=== PATIENT | male | born 1950 | race Caucasian/White ===

== ENCOUNTER 2016-07-21 19:32 | Emergency (ER) | payer MEDICAID ==
[2016-07-21 19:39] VITALS: RESP 16; TEMP 97.7
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
[2016-07-21 22:17] VITALS: BP 100/64; PULSE 70; O2SAT 96
[2016-07-21 22:21] LABS: % IMMATURE GRANULYOCYTES 0.3 % (0.0-1.1); ABSOLUTE IMMATURE GRANULOCYTES 0.02 10^3/uL (0.00-0.10); ADD DIFF? NO; ADD MORPH? NO; ADD SCAN? NO; ATYPICAL LYMPHOCYTE FLAG 10 (0-99); FRAGMENT RBC FLAG 0 (0-99); HEMATOCRIT 37.3 % (40.0-51.0); HEMOGLOBIN 13.1 g/dL (13.7-17.5); LEFT SHIFT FLG 0 (0-99); LIPEMIA HEMOLYSIS FLAG 90 (0-99); MEAN CELL HEMOGLOBIN 33.4 pg (27.9-34.1); MEAN CELL HEMOGLOBIN CONCENTR. 35.1 g/dL (32.4-36.7); MEAN CELL VOLUME 95.2 fL (81.5-99.8); MEAN PLATELET VOLUME 8.9 fL (8.7-11.7); PLATELET CLUMPS FLAG 0 (0-99); PLATELET COUNT 204 10^3/uL (150-400); RED BLOOD CELL COUNT 3.92 10^6/uL (4.40-6.38); RED CELL DISTRIBUTION WIDTH 13.3 % (11.5-15.2)
[2016-07-21 22:37] LABS: ALBUMIN 3.7 g/dL (3.5-5.0); ANION GAP 16 mEq/L (8-16); CALCIUM 8.8 mg/dL (8.5-10.4); CARBON DIOXIDE 23 mEq/l (22-31); CHLORIDE 105 mEq/L (97-110); CREATININE 1.1 mg/dL (0.7-1.3); ETHANOL SERUM 256 mg/dL (0-10); GLOMERULAR FILTRATION RATE > 60; GLUCOSE 110 mg/dL (70-100); SODIUM 144 mEq/L (134-144)
--- NOTE | 2016-07-21 22:56 | US ---
Bilateral Lower Extremity Venous Doppler Study Clinical Indications: Bilateral foot swelling. Rule out DVT. Technique: High-frequency transducer was used for compression imaging and Doppler study of the deep veins of both legs from the upper calves to the groins. Pulsed Doppler and color Doppler were utilize d, along with various maneuvers to assess flow in the deep veins. Findings: Comparison to prior study of June 29, 2016. Right Leg: The deep veins of the groin, thigh, knee, and upper calf are well displayed and normally compressible. Doppler flow patterns are unremarkable. There is no evidence of deep venous thrombosi s. Prominent nodes are once again seen in the right groin measuring up to 3.1 cm in length. These hav e a thin cortex. There is also a Oliver's cyst posterior medial aspect of the right popliteal region m easuring 3.7 cm in length. Edema is noted in the subcutaneous tissues right calf. Left Leg: The deep veins of the groin, thigh, knee, and upper calf are well displayed and normally c ompressible. Doppler flow patterns are unremarkable. There is no evidence of deep venous thrombosis . There is normal compression of the greater saphenous veins without superficial thrombosis. Impression: 1. No evidence of DVT both lower extremities. 2. Oliver's cyst posterior medial right popliteal fossa region. 3. Mild prominent lymph nodes stable in the right inguinal region. These findings were discussed by telephone with Dr. Raffy Dietz at 2253 hrs.
== END 2016-07-21 23:31 | disposition home or self-care (01) ==
DX: R60.9 Edema, unspecified (principal); F10.10 Alcohol abuse, uncomplicated; F17.200 Nicotine dependence, unspecified, uncomplicated; I10 Essential (primary) hypertension; Z79.82 Long term (current) use of aspirin
CPT/HCPCS: G0480

== ENCOUNTER 2016-07-28 02:48 | Emergency (ER) | payer MEDICAID ==
[2016-07-28 02:55] VITALS: TEMP 98.8
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
[2016-07-28] MEDS ORDERED: NS 1,000 ML IV ONE (03:05)
[2016-07-28 03:28] LABS: % IMMATURE GRANULYOCYTES 0.2 % (0.0-1.1); ABSOLUTE IMMATURE GRANULOCYTES 0.02 10^3/uL (0.00-0.10); ADD DIFF? NO; ADD MORPH? NO; ADD SCAN? NO; ATYPICAL LYMPHOCYTE FLAG 0 (0-99); FRAGMENT RBC FLAG 0 (0-99); HEMATOCRIT 39.3 % (40.0-51.0); HEMOGLOBIN 13.5 g/dL (13.7-17.5); LEFT SHIFT FLG 10 (0-99); LIPEMIA HEMOLYSIS FLAG 90 (0-99); MEAN CELL HEMOGLOBIN CONCENTR. 34.4 g/dL (32.4-36.7); MEAN CELL VOLUME 96.1 fL (81.5-99.8); MEAN PLATELET VOLUME 9.1 fL (8.7-11.7); PLATELET CLUMPS FLAG 0 (0-99); PLATELET COUNT 193 10^3/uL (150-400); RED BLOOD CELL COUNT 4.09 10^6/uL (4.40-6.38); RED CELL DISTRIBUTION WIDTH 13.8 % (11.5-15.2)
[2016-07-28 03:44] LABS: ANION GAP 8 mEq/L (8-16); CALCIUM 9.1 mg/dL (8.5-10.4); CARBON DIOXIDE 30 mEq/l (22-31); CHLORIDE 103 mEq/L (97-110); CREATININE 0.8 mg/dL (0.7-1.3); ETHANOL SERUM < 10 mg/dL (0-10); GLOMERULAR FILTRATION RATE > 60; GLUCOSE 116 mg/dL (70-100); POTASSIUM 4.3 mEq/L (3.5-5.2); SODIUM 141 mEq/L (134-144)
[2016-07-28 05:57] VITALS: BP 150/73; PULSE 80; RESP 14; O2SAT 92
--- NOTE | 2016-07-28 08:16 | DX ---
PA and Lateral Chest July 28, 2016 Clinical Indications: Pain. Findings: The lungs are clear, and no masses are found. The heart and pulmonary vessels are normal. There are no pleural effusions and no pneumothorax. The bones are unremarkable for this age. Impression: No acute cardiopulmonary process.
== END 2016-07-28 05:56 | disposition home or self-care (01) ==
DX: T69.9XXA Effect of reduced temperature, unspecified, initial encounter (principal); I10 Essential (primary) hypertension; F17.200 Nicotine dependence, unspecified, uncomplicated; Z79.82 Long term (current) use of aspirin; X31.XXXA Exposure to excessive natural cold, initial encounter
CPT/HCPCS: G0480

== ENCOUNTER 2016-08-05 13:36 | Emergency (ER) | payer MEDICAID ==
[2016-08-05 13:49] VITALS: TEMP 97.5
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
[2016-08-05 16:34] VITALS: BP 129/92; PULSE 76; RESP 18; O2SAT 94
== END 2016-08-05 16:39 | disposition home or self-care (01) ==
LOC: EDAGE → EDUNIT#
DX: F10.120 Alcohol abuse with intoxication, uncomplicated (principal); F17.200 Nicotine dependence, unspecified, uncomplicated; Z79.82 Long term (current) use of aspirin

== ENCOUNTER 2016-08-15 16:36 | Emergency (ER) | payer MEDICAID ==
--- NOTE | 2016-08-15 16:31 | EDPHY ---
H & P Time Seen by Provider: 08/15/16 16:36 HPI/ROS: CHIEF COMPLAINT: Head injury HISTORY OF PRESENT ILLNESS: Patient was in a fast food restaurant and EMS was called because he fell down and hit his head hard. EMS was able to contact the patient was sitting next to the soft drink machine, and spoke to the reporting green party who said she saw the patient fall down and hit his head. The patient has no memory of falling or hitting his head. He does admit to heavy alcohol today. He does have a headache but states that he does have chronic headaches. No neck pain or weakness or numbness in extremities. He has does not know if he passed out. REVIEW OF SYSTEMS: Eye: no change in vision ENT: no sore throat Cardiac: no chest pain or syncope Pulmonary: no cough or SOB Abdomen: no vomiting, diarrhea, abdominal pain Musculoskeletal: no back pain or neck pain, no arm or leg pain. Skin: no rash Neuro: Mild headache which the patient says is not unusual for him. Constitutional: no fever : no urinary symptoms A comprehensive 10 point review of systems is otherwise negative aside from elements mentioned in the history of present illness. PAST MEDICAL HISTORY: Alcoholism. History and physical dated 11/09/2015 reviewed personally by myself includes alcoholism, smoker, upper GI bleed, hyponatremia. Social history: Smoker, alcohol. General Appearance: Sleepy but answers questions appropriately. Eyes: No scleral icterus. ENT, Mouth: Normal mucous membranes. No hemotympanum. No tongue laceration or abrasion. Respiratory: Normal respiratory effort, breath sounds equal, lungs are clear to auscultation. Cardiovascular: Regular rate and rhythm. Gastrointestinal: Abdomen is soft and non tender. Neurological: Oriented times self and place but not to date. Normally conversant. Face symmetric, normal movement and sensation in all extremities. Skin: Warm and dry, no rashes. Musculoskeletal: No neck or back midline tenderness. Probable lipoma posterior right shoulder. Normal range of motion of the neck, no meningeal signs. Psychiatric: Not agitated. Emergency Department course/MDM: CT head and cervical spine ordered a patient with head trauma and headache with amnesia to the event and intoxication. EKG, CBC chemistry, alcohol level. 1830: Unable to ambulate, plan for discharge to detox when clinically sober. 906: Ambulatory, no medical complaints, stable for discharge to detox. Constitutional: Initial Vital Signs Temperature (C) 36.5 C 08/15/16 17:20 Heart Rate 74 08/15/16 17:20 Respiratory Rate 16 08/15/16 17:20 Blood Pressure 124/77 H 08/15/16 17:20 O2 Sat (%) 98 08/15/16 17:20 O2 Delivery Mode Room Air Allergies/Adverse Reactions: No Known Allergies Allergy (Verified 08/15/16 17:17) Home Medications: Medication Instructions Recorded Aspirin [Aspirin 81mg (*)] 81 mg PO DAILY #0 tab.chew 11/12/15 Medical Decision Making - Diagnostics EKG Interpretation: 12-lead EKG interpreted by me; official reading is in trace master. My interpretation is sinus at 69 with left anterior fascicular block. Imaging: Negative head and cervical spine CT for acute injury per Dr. Brenton Weiss at 5: 32 p.m. personally reviewed by myself. Differential Diagnosis: Differential diagnosis considered for head injury including but not limited to concussion, skull fracture, intraparenchymal contusion, subarachnoid, subdural and epidural hematoma. - Data Points Laboratory Results: Laboratory Results 08/15/16 16:45 08/15/16 16:45 08/15/16 16:45 WBC 4.53 10^3/uL (3.80-9.50) RBC 4.42 10^6/uL (4.40-6.38) Hgb 14.5 g/dL (13.7-17.5) Hct 42.2 % (40.0-51.0) MCV 95.5 fL (81.5-99.8) MCH 32.8 pg (27.9-34.1) MCHC 34.4 g/dL (32.4-36.7) RDW 13.7 % (11.5-15.2) Plt Count 233 10^3/uL (150-400) MPV 8.8 fL (8.7-11.7) Neut % (Auto) 61.5 % (39.3-74.2) Lymph % (Auto) 30.0 % (15.0-45.0) [place] % (Auto) 6.0 % (4.5-13.0) Eos % (Auto) 0.9 % (0.6-7.6) Baso % (Auto) 0.9 % (0.3-1.7) Nucleat RBC Rel Count 0.0 % (0.0-0.2) Absolute Neuts (auto) 2.79 10^3/uL (1.70-6.50) Absolute Lymphs (auto) 1.36 10^3/uL (1.00-3.00) Absolute Monos (auto) 0.27 L 10^3/uL (0.30-0.80) Absolute Eos (auto) 0.04 10^3/uL (0.03-0.40) Absolute Basos (auto) 0.04 10^3/uL (0.02-0.10) Absolute Nucleated RBC 0.00 10^3/uL (0-0.01) Immature Gran % 0.7 % (0.0-1.1) Immature Gran # 0.03 10^3/uL (0.00-0.10) Sodium 141 mEq/L (134-144) Potassium 4.0 mEq/L (3.5-5.2) Chloride 106 mEq/L (97-110) Carbon Dioxide 23 mEq/l (22-31) Anion Gap 12 mEq/L (8-16) BUN 16 mg/dL (7-23) Creatinine 0.8 mg/dL (0.7-1.3) Estimated GFR > 60 Glucose 99 mg/dL (70-100) Calcium 8.9 mg/dL (8.5-10.4) Ethyl Alcohol 189 H mg/dL (0-10) Departure - Departure Disposition: Home, Routine, Self-Care Clinical Impression: Alcohol intoxication Condition: Good Instructions: Chlordiazepoxide/Clidinium (By mouth), Alcohol Intoxication (ED) Referrals: [facility] [Outside] - As per Instructions
[2016-08-15 17:02] LABS: % IMMATURE GRANULYOCYTES 0.7 % (0.0-1.1); ABSOLUTE IMMATURE GRANULOCYTES 0.03 10^3/uL (0.00-0.10); ADD DIFF? NO; ADD MORPH? NO; ADD SCAN? NO; ATYPICAL LYMPHOCYTE FLAG 20 (0-99); FRAGMENT RBC FLAG 0 (0-99); HEMATOCRIT 42.2 % (40.0-51.0); HEMOGLOBIN 14.5 g/dL (13.7-17.5); LEFT SHIFT FLG 0 (0-99); LIPEMIA HEMOLYSIS FLAG 90 (0-99); MEAN CELL HEMOGLOBIN 32.8 pg (27.9-34.1); MEAN CELL HEMOGLOBIN CONCENTR. 34.4 g/dL (32.4-36.7); MEAN CELL VOLUME 95.5 fL (81.5-99.8); MEAN PLATELET VOLUME 8.8 fL (8.7-11.7); PLATELET CLUMPS FLAG 0 (0-99); PLATELET COUNT 233 10^3/uL (150-400); RED BLOOD CELL COUNT 4.42 10^6/uL (4.40-6.38); RED CELL DISTRIBUTION WIDTH 13.7 % (11.5-15.2)
--- NOTE | 2016-08-15 17:15 | CPEKG ---
Heart Rate: 69 RR Interval: 870 P-R Interval: 172 QRSD Interval: 104 QT Interval: 448 QTC Interval: 480 P Springer: 74 QRS Springer: -60 T Wave Springer: 55 EKG Severity - ABNORMAL ECG - EKG Impression: SINUS RHYTHM EKG Impression: LEFT ANTERIOR FASCICULAR BLOCK EKG Impression: PROBABLE ANTEROSEPTAL INFARCT, OLD EKG Impression: BORDERLINE PROLONGED QT INTERVAL Electronically Signed By: Bi Celis 15-Aug-2016 17:31:02
[2016-08-15 17:23] LABS: ANION GAP 12 mEq/L (8-16); CALCIUM 8.9 mg/dL (8.5-10.4); CARBON DIOXIDE 23 mEq/l (22-31); CHLORIDE 106 mEq/L (97-110); CREATININE 0.8 mg/dL (0.7-1.3); ETHANOL SERUM 189 mg/dL (0-10); GLOMERULAR FILTRATION RATE > 60; GLUCOSE 99 mg/dL (70-100); SODIUM 141 mEq/L (134-144)
[2016-08-15 17:26] VITALS: TEMP 97.7
--- NOTE | 2016-08-15 17:28 | CT ---
CT Brain Without Contrast 1658 hours History: Trauma. Fell earlier today. Alcohol use. Technique: Axial computed tomographic images of the brain without contrast. Images were reconstruct ed down to 1.25 mm slice thickness. Dose reduction techniques were utilized. Comparison the prior study from November 07, 2015. Findings: Hypodensity with some encephalomalacia is once again noted lateral left temporal lobe. Ildefonso tricles, cisterns, and sulci are widened consistent with moderate atrophy. No hydrocephalus, masses, midline shift/herniation, or subdural hematomas. No intraparenchymal hemorrhage or mass effect. No si gnificant hypodensities are seen in the periventricular white matter of bilateral cerebral hemisphere s. There is no acute peripheral cerebral infarct seen. . Bone windows demonstrate no acute fractures. Stable old nasal bone fracture is identified. Paranasal sinuses and mastoid air cells are clear. Earwax in the left external auditory canal has a s table configuration when compared to the prior study. Impression: 1. Stable moderate atrophy. 2. No hemorrhage, mass effect, or definite acute peripheral infarct. 3. Encephalomalacia left lateral temporal lobe stable in appearance possibly from prior trauma. 4. Stable configuration of earwax left external auditory canal. These findings were discussed by telephone with Dr. Bi Celis at 1730 hrs.
--- NOTE | 2016-08-15 17:36 | CT ---
CT Cervical Spine 1658 hours History: Recent trauma. Evaluate for possible cervical spine injury. Technique: Spiral imaging was obtained from the base of skull to the upper chest. Images were reconst ructed at 1.25 mm slice thickness. Images were reconstructed in multiple planes. Dose reduction techn iques were utilized. Findings: Vertebral body heights are well maintained. There are no subluxations. No fractures are see n. Mild degenerative disk disease is noted at C2-C3 and at C3-C4 with marked degenerative disk diseas e with disk space narrowing, endplate sclerosis, and subchondral cystic change at C6-C7. Mild to mode rate left-sided facet hypertrophy is present at C3-C4 and on the left at C4-C5 with moderate bilatera l facet hypertrophy at C5-C6.. Paravertebral soft tissues demonstrate no significant abnormality. Impression: 1. No acute osseous abnormality seen about the cervical spine. 2. Degenerative disk disease at C2-C3, C3-C4, and C6-C7 as detailed above along with facet hypertroph y more prominent on the left side as detailed above. These findings were discussed by telephone with Dr. Bi Celis at 1735 hrs.
[2016-08-15] MEDS ORDERED: CHLORDIAZEPOXIDE 25MG PREPK#6 BTL TAKEHOME ONE (21:02)
[2016-08-15 21:18] VITALS: BP 109/69; PULSE 75; RESP 16; O2SAT 100
== END 2016-08-15 21:17 | disposition home or self-care (01) ==
LOC: EDUNIT#
DX: F10.129 Alcohol abuse with intoxication, unspecified (principal); F17.200 Nicotine dependence, unspecified, uncomplicated; Z79.82 Long term (current) use of aspirin; W22.8XXA Striking against or struck by other objects, initial encounter; Y99.8 Other external cause status; Y93.89 Activity, other specified
CPT/HCPCS: G0480

== ENCOUNTER 2016-09-21 12:54 | Emergency (ER) | payer MEDICAID ==
--- NOTE | 2016-09-21 14:18 | EDPHY ---
H & P Time Seen by Provider: 09/21/16 12:56 HPI/ROS: CHIEF COMPLAINT: Alcohol intoxication HISTORY OF PRESENT ILLNESS: 65-year-old male presents to the emergency department with acute alcohol intoxication. The patient is on an arc hold. The patient admits to drinking alcohol today. He denies any other substance abuse. He does not have any complaints. No reported trauma. REVIEW OF SYSTEMS: Constitutional: No fever, no chills. Eyes: No double or blurry vision. ENT: No sore throat. Respiratory: No cough, no shortness of breath. Cardiac: No chest pain. Gastrointestinal: No abdominal pain, vomiting or diarrhea. Genitourinary: No dysuria. Musculoskeletal: No neck or back pain. Skin: No rashes. Neurological: No headache. Past Medical/Surgical History: Alcoholism, history of pneumonia Social History: Homeless Smoking Status: Current every day smoker Physical Exam: General Appearance: Alert, no distress. Smells strongly of alcohol. Eyes: Pupils equal and round. Extraocular motions are all intact. ENT: Mouth: Mucous membranes moist. Respiratory: No wheezing, rhonchi, or rales, lungs are clear to auscultation. Cardiovascular: Regular rate and rhythm. Gastrointestinal: Abdomen is soft and nontender, no masses, no rebound or guarding, bowel sounds normal. Neurological: Uncooperative, cannot determine. Skin: Warm and dry, no rashes. Musculoskeletal: Nontender to palpate along the cervical, thoracic or lumbar spine. Neck is supple. Extremities: Full range of motion and no peripheral edema. Psychiatric: No agitation Constitutional: Initial Vital Signs Temperature (C) 36.4 C 09/21/16 13:12 Heart Rate 65 09/21/16 13:12 Respiratory Rate 14 09/21/16 13:12 Blood Pressure 178/103 H 09/21/16 13:12 O2 Sat (%) 99 09/21/16 13:12 O2 Delivery Mode Room Air O2 (L/minute) 2 Allergies/Adverse Reactions: No Known Allergies Allergy (Verified 08/15/16 17:17) Home Medications: Medication Instructions Recorded Aspirin [Aspirin 81mg (*)] 81 mg PO DAILY #0 tab.chew 11/12/15 Medical Decision Making ED Course/Re-evaluation: 65-year-old male presents to the emergency department on an arc hold. He was observed for several hours in the emergency department without incident. Upon discharge the patient was without any complaints and was able to ambulate on his own. He was discharged to the addiction recovery Center with the [place] police superintendent. Differential Diagnosis: Altered mental status including but not limited to hypoglycemia, infectious process, electrolyte abnormality, head injury and intoxicants. Departure - Departure Disposition: Home, Routine, Self-Care Clinical Impression: Alcohol intoxication Qualifiers: Complication of substance-induced condition: uncomplicated Qualified Code(s): F10.120 - Alcohol abuse with intoxication, uncomplicated Condition: Good Instructions: Alcohol Intoxication (ED) Additional Instructions: Go to the diction recovery Center. Return if you developed chest pain, difficulty breathing or if you feel worse in any way. You should not drink alcohol in excess. Referrals: [facility] [Outside] - As per Instructions
[2016-09-21 14:45] VITALS: BP 139/86; PULSE 71; RESP 12; TEMP 98.4; O2SAT 100
== END 2016-09-21 15:18 | disposition home or self-care (01) ==
LOC: EDUNIT# → EDBD
DX: F10.120 Alcohol abuse with intoxication, uncomplicated (principal); F17.200 Nicotine dependence, unspecified, uncomplicated; Z79.82 Long term (current) use of aspirin

== ENCOUNTER 2017-05-20 22:43 | Emergency (ER) | payer MEDICAID ==
--- NOTE | 2017-05-20 22:49 | EDPHY ---
H & P HPI/ROS: HPI CHIEF COMPLAINT: Alcohol intoxication, unable to ambulate HISTORY OF PRESENT ILLNESS: Patient very pleasant 66-year-old male, homeless, daily alcohol use, drinking liquor this evening and [place] [employer]. Unable to ambulate. No vomiting. No trauma. Brought to the emergency room by EMS as he is unable to ambulate. No complaints. Intoxicated. Past Medical History: Daily alcohol use. Past Surgical History: No recent surgical history Social History: Homeless, daily alcohol use. Family History: Noncontributory. ROS REVIEW OF SYSTEMS: A comprehensive 10 point review of systems is otherwise negative aside from elements mentioned in the history of present illness. Exam Constitutional intoxicated, smells of alcohol, triage nursing summary reviewed , vital signs reviewed, awake/alert. Eyes normal conjunctivae and sclera, EOMI, PERRLA. HENT normal inspection, atraumatic, moist mucus membranes, no epistaxis, neck supple/ no meningismus, no raccoon eyes. Respiratory clear to auscultation bilaterally, normal breath sounds, no respiratory distress, no wheezing. Cardiovascular rate normal, regular rhythm, no murmur, no edema, distal pulses normal. Gastrointestinal soft, non-tender, no rebound, no guarding, normal bowel sounds, no distension, no pulsatile mass. Genitourinary no CVA tenderness. Musculoskeletal no midline vertebral tenderness, full range of motion, no calf swelling, no tenderness of extremities, no meningismus, good pulses, neurovascularly intact. Skin pink, warm, & dry, no rash, skin atraumatic. Neurologic awake, alert and oriented x 3, AAOx3, moves all 4 extremities equally, motor intact, sensory intact, CN II-XII intact, normal cerebellar, normal vision, normal speech. Psychiatric normal mood/affect. Heme/Lymph/Immune no lymphadenopathy. Differential Diagnosis: Includes but is not limited to in a particular order acute alcohol intoxication, dehydration. Medical Decision Making: Plan for this patient breath alcohol. Monitor for worsening of condition. Monitor for sobriety. Re-evaluation: Breath alcohol 278. Source: Patient, EMS - Personal History Tetanus Vaccine Date: 2013 - Medical/Surgical History Hx Asthma: No Hx Chronic Respiratory Disease: No Hx Diabetes: No Hx Cardiac Disease: No Hx Renal Disease: No Hx Cirrhosis: No Hx Alcoholism: Yes Hx HIV/AIDS: No Hx Splenectomy or Spleen Trauma: No Other PMH: leg injuries, pneumonia, etoh - Social History Smoking Status: Current every day smoker Constitutional: Initial Vital Signs Temperature (C) 36.5 C 05/20/17 22:54 Heart Rate 78 05/20/17 22:54 Respiratory Rate 16 05/20/17 22:54 Blood Pressure 100/59 L 05/20/17 22:54 O2 Sat (%) 92 05/20/17 22:54 O2 Delivery Mode Room Air O2 (L/minute) 2 Allergies/Adverse Reactions: No Known Allergies Allergy (Verified 08/15/16 17:17) Home Medications: Medication Instructions Recorded Aspirin [Aspirin 81mg (*)] 81 mg PO DAILY #0 tab.chew 11/12/15 Departure - Departure Disposition: Home, Routine, Self-Care Clinical Impression: Alcohol intoxication Qualifiers: Complication of substance-induced condition: uncomplicated Qualified Code(s): F10.920 - Alcohol use, unspecified with intoxication, uncomplicated Condition: Good Instructions: Alcohol Intoxication (ED), Abuse of Alcohol (ED) Referrals: Patient,NotPresent [Primary Care Provider] - As per Instructions
[2017-05-20 22:57] VITALS: RESP 16; TEMP 97.7
[2017-05-21 05:53] VITALS: BP 117/73; PULSE 65; O2SAT 92
[2017-05-21] MEDS ORDERED: CHLORDIAZEPOXIDE 25MG PREPK#6 BTL TAKEHOME ONE (05:55)
== END 2017-05-21 06:00 | disposition home or self-care (01) ==
LOC: EDUNIT#
DX: F10.920 Alcohol use, unspecified with intoxication, uncomplicated (principal); F17.200 Nicotine dependence, unspecified, uncomplicated; Z79.82 Long term (current) use of aspirin

== ENCOUNTER 2017-09-13 13:22 | Emergency (ER) | payer MEDICAID ==
--- NOTE | 2017-09-13 13:30 | EDPHY ---
H & P Time Seen by Provider: 09/13/17 13:29 HPI/ROS: CHIEF COMPLAINT: Presumed alcohol intoxication HISTORY OF PRESENT ILLNESS: The patient is brought in by paramedics from a local with presumed alcohol intoxication. He has a history of multiple ED visits. The patient is able to provide only a little history secondary to his assumed intoxication. The patient denies any traumatic complaints. The patient denies taking regular medications. REVIEW OF SYSTEMS: A comprehensive 10 point review of systems is otherwise negative aside from elements mentioned in the history of present illness. Source: Patient Exam Limitations: No limitations - Personal History Tetanus Vaccine Date: 2013 - Medical/Surgical History Hx Asthma: No Hx Chronic Respiratory Disease: No Hx Diabetes: No Hx Cardiac Disease: No Hx Renal Disease: No Hx Cirrhosis: No Hx Alcoholism: Yes Hx HIV/AIDS: No Hx Splenectomy or Spleen Trauma: No Other PMH: leg injuries, pneumonia, etoh - Social History Smoking Status: Current every day smoker - Physical Exam Exam: General Appearance: Thin male, somewhat deconditioned, disheveled Head: Normocephalic atraumatic Eyes: Pupils equal and round no pallor or injection ENT, Mouth: Dry mucous membranes Respiratory: There are no retractions, lungs are clear to auscultation Cardiovascular: Regular rate and rhythm Gastrointestinal: Abdomen is soft and nontender, no masses, bowel sounds normal Neurological: Moves all 4 extremities Skin: Warm and dry, no rashes Musculoskeletal: Neck is supple nontender Extremities: symmetrical, full range of motion Constitutional: Initial Vital Signs Temperature (C) 36.5 C 09/13/17 13:30 Heart Rate 72 09/13/17 13:30 Respiratory Rate 18 09/13/17 13:30 Blood Pressure 167/104 H 09/13/17 13:30 O2 Sat (%) 93 09/13/17 13:30 O2 Delivery Mode Room Air Allergies/Adverse Reactions: No Known Allergies Allergy (Verified 08/15/16 17:17) Home Medications: Medication Instructions Recorded Aspirin [Aspirin 81mg (*)] 81 mg PO DAILY #0 tab.chew 11/12/15 Medical Decision Making ED Course/Re-evaluation: The patient presents to the ED with a likely alcohol intoxication. The patient's blood alcohol level was 0.288. The patient did appear somewhat dehydrated. He received a L of normal saline. The patient did have screening laboratory studies and had no evidence of an obvious anion gap. The patient underwent serial examinations in the ED. At 3:00 p.m. his mentation is markedly improved. He has no acute complaints. He will be discharged home in stable condition. 5:00 p.m.: The patient is improving in terms of his mentation. He is still having some difficulties with ambulation secondary to his alcohol intoxication. 6:30 p.m.: The patient is now ambulatory without acute complaints. He is interested in going to the [facility] for further sobering. He clearly is at risk for developing alcohol withdrawal and will be discharged to the [facility] with a Librium prescription. Differential Diagnosis: Differential diagnosis considered includes alcohol intoxication, dehydration, metabolic abnormality, acidosis - Data Points Laboratory Results: Laboratory Results 09/13/17 13:30 09/13/17 13:30 09/13/17 09/13/17 13: 13:30 WBC 3.85 10^3/uL 10^3/uL (3.80-9.50) RBC 4.42 10^6/uL 10^6/uL (4.40-6.38) Hgb 15.5 g/dL g/dL (13.7-17.5) Hct 44.8 % % (40.0-51.0) MCV 101.4 fL H fL (81.5-99.8) MCH 35.1 pg H pg (27.9-34.1) MCHC 34.6 g/dL g/dL (32.4-36.7) RDW 12.8 % % (11.5-15.2) Plt Count 131 10^3/uL L 10^3/uL (150-400) MPV 9.2 fL fL (8.7-11.7) Neut % (Auto) Not Reported Lymph % (Auto) Not Reported [place] % (Auto) Not Reported Eos % (Auto) Not Reported Baso % (Auto) Not Reported Nucleat RBC Rel Count 0.0 % % (0.0-0.2) Absolute Neuts (auto) Not Reported Absolute Lymphs (auto) Not Reported Absolute Monos (auto) Not Reported Absolute Eos (auto) Not Reported Absolute Basos (auto) Not Reported Absolute Nucleated RBC 0.00 10^3/uL 10^3/uL (0-0.01) Immature Gran % Not Reported Seg Neutrophils % 40 % % Band Neutrophils % 2 % % Lymphocytes % 32 % % Monocytes % 26 % % Immature Gran # Not Reported Absolute Seg Neuts 1.54 10^/uL L 10^/uL (1.70-6.50) Absolute Band Neuts 0.08 10^3/uL 10^3/uL (0.00-0.70) Absolute Lymphocytes 1.23 10^3/uL 10^3/uL (1.00-3.00) Absolute Monocytes 1.00 10^3/uL H 10^3/uL (0.30-0.80) Platelet Estimate DECREASED L (ADEQ) Polychromasia 1+ H Oval Macrocytes 1+ H Smear Review By Jackeline ORTEGA MD Sodium 143 mEq/L mEq/L (135-145) Potassium 4.3 mEq/L mEq/L (3.5-5.2) Chloride 101 mEq/L mEq/L (97-110) Carbon Dioxide 26 mEq/l mEq/l (22-31) Anion Gap 16 mEq/L mEq/L (8-16) BUN 11 mg/dL mg/dL (7-23) Creatinine 0.8 mg/dL mg/dL (0.7-1.3) Estimated GFR > 60 Glucose 102 mg/dL H mg/dL (70-100) Calcium 9.6 mg/dL mg/dL (8.5-10.4) Ethyl Alcohol 288 mg/dL H mg/dL (0-10) Medications Given: Discontinued Medications Sodium Chloride (Ns) 1,000 mls @ 0 mls/hr IV EDNOW ONE; Wide Open PRN Reason: Protocol Stop: 09/13/17 13:34 Last Admin: 09/13/17 14:01 Dose: Not Given Departure - Departure Disposition: Home, Routine, Self-Care Clinical Impression: Alcohol intoxication Condition: Good Instructions: Alcohol Intoxication (ED) Additional Instructions: 1. Continue use of alcohol which she was serious risk for infection, trauma and even . 2. Please follow up with the [facility] if you desire assistance with your alcohol dependence. Referrals: [facility] [Outside] - As per Instructions
[2017-09-13 13:32] VITALS: RESP 18; TEMP 97.7; O2SAT 93
[2017-09-13] MEDS ORDERED: NS 1,000 ML IV ONE (13:33)
[2017-09-13 13:39] LABS: PLATELET COUNT 131 10^3/uL (150-400)
[2017-09-13 17:49] VITALS: BP 155/81; PULSE 76
[2017-09-13] MEDS ORDERED: CHLORDIAZEPOXIDE 25MG PREPK#6 BTL TAKEHOME ONE (18:27)
== END 2017-09-13 18:40 | disposition home or self-care (01) ==
LOC: EDBD → EDUNIT#
DX: F10.129 Alcohol abuse with intoxication, unspecified (principal); F17.200 Nicotine dependence, unspecified, uncomplicated; Z79.82 Long term (current) use of aspirin
CPT/HCPCS: G0480

== ENCOUNTER 2017-09-14 14:47 | Inpatient (IN) | payer MEDICAID ==
[2017-09-14] MEDS ORDERED: NS 1,000 ML IV ONE (14:50)
--- NOTE | 2017-09-14 14:50 | EDPHY ---
H & P Time Seen by Provider: 09/14/17 14:49 HPI/ROS: Chief complaint. Stroke alert HPI. 66-year-old male presents emergency department as a stroke activation from [facility]. Patient seen in our emergency department yesterday for alcohol intoxication. He had improving mentation and was sent to the arc. Apparently overnight there were no reports of any problems with the patient. Today around noon staff noticed that the patient was not speaking. There was concern for stroke and he was sent to the emergency department emergently as a stroke activation. Patient does not speak other than to occasionally say yes in appropriately. Time of onset of speech difficulty is not known. Patient is found to have a fever in the emergency department ROS Constitutional. Fever Eyes. no problems with vision ENT. no sore throat, no nasal drainage Cardiovascular. no chest pain Respiratory. no shortness of breath, no cough Abdominal. no abdominal pain, no nausea/vomiting, no diarrhea . no problems urinating MS. no calf pain/swelling, no neck/back pain, no joint pain Skin. no rash Lymph. no swollen glands Neuro. Patient only answers yes Past Medical/Surgical History: Past medical history significant for GI bleed, hyponatremia, anemia, chronic renal insufficiency, alcoholism, pneumonia Social History: Single, daily smoker, no alcohol for the past 24 hr though blood alcohol yesterday afternoon was 288 Smoking Status: Current every day smoker Physical Exam: General Appearance: Alert well-developed male mild distress. Vital signs show blood pressure 174/105, heart rate 106 and temp 38.4 degrees Eyes: Pupils equal and round no pallor or injection. ENT, Mouth: Mucous membranes are moist. Respiratory: No retractions but mild inspiratory expiratory rhonchi Cardiovascular: Regular rate and rhythm with tachycardia Gastrointestinal: Abdomen is soft and nontender, no masses, bowel sounds normal. Neurological: Awake and alert, sensory and motor exams grossly normal. Skin: Warm and dry, no rashes. Musculoskeletal: Neck is supple nontender. Extremities symmetrical, full range of motion. Psychiatric: Patient does not respond and I cannot assess orientation Constitutional: Initial Vital Signs Temperature (C) 38.8 C H 09/14/17 15:57 Heart Rate 106 H 09/14/17 15:57 Respiratory Rate 20 09/14/17 15:57 Blood Pressure 174/105 H 09/14/17 15:57 O2 Sat (%) 94 09/14/17 15:57 O2 Delivery Mode Nasal Cannula O2 (L/minute) 2 Allergies/Adverse Reactions: No Known Allergies Allergy (Verified 08/15/16 17:17) Home Medications: Medication Instructions Recorded Aspirin [Aspirin 81mg (*)] 81 mg PO DAILY #0 tab.chew 11/12/15 Medical Decision Making - Diagnostics Imaging Results: Imaging Impressions Chest X-Ray 09/14/17 14:50 Impression: Infiltrate in the left lower lung compatible with pneumonia. Head CT 09/14/17 14:50 Impression: 1. No acute intracranial hemorrhage or evidence of acute ischemia. 2. Atrophy and left temporal encephalomalacia, unchanged since July 2016. Head CTA 09/14/17 14:57 Impression: 1. Normal intracranial arterial circulation. No evidence of embolic disease or aneurysm. 2. Patent venous system. Findings discussed with Emergency Department physician, Willie Lobo M.D., on September 14, 2017 at 1511. Neck CTA 09/14/17 14:57 Impression: 1. No flow-limiting stenosis, ulcerated plaque, or dissection. 2. Mild (less than 30%) stenosis bilateral carotid bulbs and origin of the internal carotid arteries due to eccentric calcified plaque. 3. Early lingular pneumonia versus aspiration. Findings discussed with Emergency Department Physician Skiing Teacher, Tommy Rowland, Cammie MARTIN at September 14, 2017 at 1549. Measurement of carotid stenosis is based on the residual internal carotid diameter with [place] Symptomatic Carotid Endarterectomy Trial (NASCET) based stenosis levels. Noncontrast head CT shows atrophy but no evidence of hemorrhage CTA head and neck shows some narrowing but no flow limiting lesions. No thromboembolic evidence Chest x-ray shows left lower lobe pneumonia Procedures: IV normal saline. Sepsis workup The patient was left on the gurney and I took a history and performed neurologic exam. The patient was uncooperative for the exam but appears to be grossly normal. I do not see any facial droop or arm or leg weakness. However the patient is unable to cooperate participate in the exam. During the exam he answers yes I consulted and discussed the case with Dr. Culver at [facility]. He recommends following the noncontrast head CT with angio of his head and neck. He also recommends high-dose thiamin treatment for the patient IV Rocephin, intravenous thiamin ED Course/Re-evaluation: Thigh min 500 mg IV. Patient remains stable. However he remains nonverbal. He does appear to be more alert He and I discussed the treatment plan and recommendation for admission. He does not expressed understanding or agreement as he is nonverbal. I consulted and discussed the case with , hospitalist, who agrees to the admission Differential Diagnosis: Patient came in as a stroke activation. At this point no evidence for CVA. I have considered were neck ease encephalopathy and have given the patient IV thiamin. He is found to have a new pneumonia on his chest x-ray. We did sepsis workup and I considered severe sepsis. Patient is cultured and treated with IV antibiotics. He does have an element also of alcohol withdrawal. He is treated with Ativan for this. Critical Care Time: Critical care time exclusive procedures 50 min - Data Points Laboratory Results: Laboratory Results 09/14/17 14:55 09/14/17 14:55 09/14/17 09/14/17 09/14/17 16:10 16:10 16:10 WBC RBC Hgb Hct MCV MCH MCHC RDW Plt Count MPV Neut % (Auto) Lymph % (Auto) [place] % (Auto) Eos % (Auto) Baso % (Auto) Nucleat RBC Rel Count Absolute Neuts (auto) Absolute Lymphs (auto) Absolute Monos (auto) Absolute Eos (auto) Absolute Basos (auto) Absolute Nucleated RBC Immature Gran % Immature Gran # PT INR VBG Lactic Acid 1.6 mmol/L mmol/L (0.7-2.1) Sodium Potassium Chloride Carbon Dioxide Anion Gap BUN Creatinine Estimated GFR Glucose Calcium Total Bilirubin 0.9 mg/dL mg/dL (0.1-1.4) Conjugated Bilirubin 0.5 mg/dL mg/dL (0.0-0.5) Unconjugated Bilirubin 0.4 mg/dL mg/dL (0.0-1.1) AST 88 IU/L H IU/L (17-59) ALT 40 IU/L IU/L (21-72) Alkaline Phosphatase 70 IU/L IU/L (38-126) Ammonia < 9.0 uMOL/L L uMOL/L (9.0-30.0) Troponin I Total Protein 6.5 g/dL g/dL (6.3-8.2) Albumin 3.4 g/dL L g/dL (3.5-5.0) Urine Color Urine Appearance Urine pH Ur Specific [place] Urine Protein Urine Ketones Urine Blood Urine Nitrate Urine Bilirubin Urine Urobilinogen Ur Leukocyte Esterase Urine RBC Urine WBC Ur Epithelial Cells Urine Mucus Urine Glucose Nasal Influenza A PCR Nasal Influenza B PCR Urine Opiates Screen Urine Barbiturates Ur Phencyclidine Scrn Ur Amphetamine Screen U Benzodiazepines Scrn Urine Cocaine Screen U Marijuana (THC) Screen Ethyl Alcohol < 10 mg/dL mg/dL (0-10) RSV (PCR) 09/14/17 09/14/17 09/14/17 16:00 16:00 16:00 WBC RBC Hgb Hct MCV MCH MCHC RDW Plt Count MPV Neut % (Auto) Lymph % (Auto) [place] % (Auto) Eos % (Auto) Baso % (Auto) Nucleat RBC Rel Count Absolute Neuts (auto) Absolute Lymphs (auto) Absolute Monos (auto) Absolute Eos (auto) Absolute Basos (auto) Absolute Nucleated RBC Immature Gran % Immature Gran # PT INR VBG Lactic Acid Sodium Potassium Chloride Carbon Dioxide Anion Gap BUN Creatinine Estimated GFR Glucose Calcium Total Bilirubin Conjugated Bilirubin Unconjugated Bilirubin AST ALT Alkaline Phosphatase Ammonia Troponin I Total Protein Albumin Urine Color PALE YELLOW Urine Appearance CLEAR Urine pH 8.0 H (5.0-7.5) Ur Specific [place] 1.035 H (1.002-1.030) Urine Protein NEGATIVE (NEGATIVE) Urine Ketones NEGATIVE (NEGATIVE) Urine Blood 1+ H (NEGATIVE) Urine Nitrate NEGATIVE (NEGATIVE) Urine Bilirubin NEGATIVE (NEGATIVE) Urine Urobilinogen NEGATIVE EU EU (0.2-1.0) Ur Leukocyte Esterase NEGATIVE (NEGATIVE) Urine RBC 3-5 /hpf H /hpf (0-3) Urine WBC 1-3 /hpf /hpf (0-3) Ur Epithelial Cells TRACE /lpf /lpf (NONE-1+) Urine Mucus TRACE /lpf /lpf (NONE-1+) Urine Glucose NEGATIVE (NEGATIVE) Nasal Influenza A PCR NEGATIVE FOR FLU A Cancelled (NEGATIVE) Nasal Influenza B PCR NEGATIVE FOR FLU B Cancelled (NEGATIVE) Urine Opiates Screen NEGATIVE (NEGATIVE) Urine Barbiturates NEGATIVE (NEGATIVE) Ur Phencyclidine Scrn NEGATIVE (NEGATIVE) Ur Amphetamine Screen NEGATIVE (NEGATIVE) U Benzodiazepines Scrn NON-NEGATIVE H (NEGATIVE) Urine Cocaine Screen NEGATIVE (NEGATIVE) U Marijuana (THC) Screen NON-NEGATIVE H (NEGATIVE) Ethyl Alcohol RSV (PCR) RSV DETECTED H (NEGATIVE) 09/14/17 09/14/17 09/14/17 14:55 14:55 14:55 WBC 7.26 10^3/uL 10^3/uL (3.80-9.50) RBC 4.12 10^6/uL L 10^6/uL (4.40-6.38) Hgb 14.3 g/dL g/dL (13.7-17.5) Hct 41.0 % % (40.0-51.0) MCV 99.5 fL fL (81.5-99.8) MCH 34.7 pg H pg (27.9-34.1) MCHC 34.9 g/dL g/dL (32.4-36.7) RDW 12.8 % % (11.5-15.2) Plt Count 109 10^3/uL L 10^3/uL (150-400) MPV 8.8 fL fL (8.7-11.7) Neut % (Auto) 75.5 % H % (39.3-74.2) Lymph % (Auto) 6.9 % L % (15.0-45.0) [place] % (Auto) 17.2 % H % (4.5-13.0) Eos % (Auto) 0.0 % L % (0.6-7.6) Baso % (Auto) 0.1 % L % (0.3-1.7) Nucleat RBC Rel Count 0.0 % % (0.0-0.2) Absolute Neuts (auto) 5.48 10^3/uL 10^3/uL (1.70-6.50) Absolute Lymphs (auto) 0.50 10^3/uL L 10^3/uL (1.00-3.00) Absolute Monos (auto) 1.25 10^3/uL H 10^3/uL (0.30-0.80) Absolute Eos (auto) 0.00 10^3/uL L 10^3/uL (0.03-0.40) Absolute Basos (auto) 0.01 10^3/uL L 10^3/uL (0.02-0.10) Absolute Nucleated RBC 0.00 10^3/uL 10^3/uL (0-0.01) Immature Gran % 0.3 % % (0.0-1.1) Immature Gran # 0.02 10^3/uL 10^3/uL (0.00-0.10) PT 14.1 SEC SEC (12.0-15.0) INR 1.07 (0.83-1.16) VBG Lactic Acid Sodium 137 mEq/L mEq/L (135-145) Potassium 3.1 mEq/L L mEq/L (3.5-5.2) Chloride 101 mEq/L mEq/L (97-110) Carbon Dioxide 23 mEq/l mEq/l (22-31) Anion Gap 13 mEq/L mEq/L (8-16) BUN 13 mg/dL mg/dL (7-23) Creatinine 0.8 mg/dL mg/dL (0.7-1.3) Estimated GFR > 60 Glucose 133 mg/dL H mg/dL (70-100) Calcium 9.0 mg/dL mg/dL (8.5-10.4) Total Bilirubin Conjugated Bilirubin Unconjugated Bilirubin AST ALT Alkaline Phosphatase Ammonia Troponin I 0.061 ng/mL H ng/mL (0.000-0.034) Total Protein Albumin Urine Color Urine Appearance Urine pH Ur Specific [place] Urine Protein Urine Ketones Urine Blood Urine Nitrate Urine Bilirubin Urine Urobilinogen Ur Leukocyte Esterase Urine RBC Urine WBC Ur Epithelial Cells Urine Mucus Urine Glucose Nasal Influenza A PCR Nasal Influenza B PCR Urine Opiates Screen Urine Barbiturates Ur Phencyclidine Scrn Ur Amphetamine Screen U Benzodiazepines Scrn Urine Cocaine Screen U Marijuana (THC) Screen Ethyl Alcohol RSV (PCR) Medications Given: Thiamine HCl 500 mg/ Sodium (Chloride) 505 mls @ 505 mls/hr IV Q8HRS [facility] Stop: 03/13/18 21:59 Last Admin: 09/14/17 15:55 Dose: 505 mls Discontinued Medications Sodium Chloride (Ns) 1,000 mls @ 0 mls/hr IV ONCE ONE; Wide Open PRN Reason: Protocol Stop: 09/14/17 14:51 Last Admin: 09/14/17 15:57 Dose: 1,000 mls Ceftriaxone Sodium/Dextrose (Rocephin 1 Gm (Premix)) 50 mls @ 100 mls/hr IV EDNOW ONE PRN Reason: Protocol Stop: 09/14/17 18:02 Last Admin: 02/26/18 17:38 Dose: 50 mls Lorazepam (Ativan Injection) 1 mg IVP EDNOW ONE Stop: 09/14/17 15:57 Last Admin: 09/14/17 15:57 Dose: 1 mg Thiamine HCl (Vitamin B-1) 100 mg IM EDNOW ONE Stop: 09/14/17 14:58 Last Admin: 09/14/17 15:55 Dose: 100 mg Departure - Departure Disposition: [facility] Inpatient Acute Clinical Impression: Alcohol withdrawal Qualifiers: Complication of substance-induced condition: with unspecified complication Qualified Code(s): F10.239 - Alcohol dependence with withdrawal, unspecified Pneumonia Qualifiers: Pneumonia type: due to unspecified organism Laterality: left Lung location: lower lobe of lung Qualified Code(s): J18.1 - Lobar pneumonia, unspecified organism Altered mental status Qualifiers: Altered mental status type: disorientation Qualified Code(s): R41.0 - Disorientation, unspecified Condition: Fair
[2017-09-14] MEDS ORDERED: IOPAMIDOL (ISOVUE 370) 100 ML BTL IV ONE ×2 (14:54→15:13)
[2017-09-14] MEDS ORDERED: THIAMINE HCL 200 MG/2 ML VIAL IM ONE (14:57)
[2017-09-14 15:08] LABS: PLATELET COUNT 109 10^3/uL (150-400)
[2017-09-14 15:19] LABS: INR 1.07 (0.83-1.16); PROTIME(PATIENT) 14.1 SEC (12.0-15.0)
--- NOTE | 2017-09-14 15:37 | CPEKG ---
Heart Rate: 114 RR Interval: 526 P-R Interval: 148 QRSD Interval: 108 QT Interval: 344 QTC Interval: 474 P [place]: 81 QRS [place]: -53 T Wave [place]: 92 EKG Severity - ABNORMAL ECG - EKG Impression: SINUS TACHYCARDIA EKG Impression: ABERRANT COMPLEX, POSSIBLY SUPRAVENTRICULAR EKG Impression: PROBABLE LEFT ATRIAL ABNORMALITY EKG Impression: LEFT ANTERIOR FASCICULAR BLOCK EKG Impression: REPOL ABNRM SUGGESTS ISCHEMIA, ANT-LAT LEADS Electronically Signed By: Willie Lobo 14-Sep-2017 22:34:35
[2017-09-14] MEDS ORDERED: LORazepam 2 MG/ML INJ ONE (15:43)
[2017-09-14] MEDS ORDERED: LORazepam 2 MG/ML INJ IVP ONE (15:56)
[2017-09-14] MEDS ORDERED: LORazepam 1 MG TAB PO PRN (18:31)
[2017-09-14] MEDS ORDERED: PROMETHAZINE HCL 25 MG/ML INJ IVP PRN (18:36)
[2017-09-14] MEDS ORDERED: ACETAMINOPHEN 325 MG TAB PO PRN (18:36)
[2017-09-14] MEDS ORDERED: ONDANSETRON 4 MG/2 ML VIAL IVP PRN (18:36)
[2017-09-14] MEDS ORDERED: ACETAMINOPHEN 650 MG SUPP PR PRN (18:36)
[2017-09-14] MEDS ORDERED: NS 1,000 ML IV SCH (18:45)
--- NOTE | 2017-09-14 20:31 | GHP ---
[f rep st] HISTORY AND PHYSICAL DATE OF ADMISSION: 09/14/2017 CHIEF COMPLAINT: Altered mental status. HISTORY OF PRESENT ILLNESS: The patient is a 66-year-old male, who was seen in the emergency departm ent yesterday with alcohol intoxication and sent to the [facility]. He did fine overnight, but at about noo n today he was found by the staff to be minimally responsive and not speaking. [facility]. He went emergently to head CT and CT angiogram of the chest, and [facility] was consulted. The exam was nonfocal, and there was no definite time of onset, a nd so t-PA was not indicated. After he returned from his stroke alert from CT scan he was noted to h ave a fever and has since been diagnosed with pneumonia. He does complain of a cough. He is letharg ic, but wakes up to answer very simple questions, but only very briefly and is very difficult to arou se at this time. PAST MEDICAL HISTORY: 1. Alcoholism. 2. Suspected Wernicke's. 3. Hypertension. 4. Erosive esophagitis. MEDICATIONS: Please see computer record for full detailed list. ALLERGIES: No known drug allergies. SOCIAL HISTORY: He smokes up to 2 packs per day. He drinks alcohol. Alcohol level yesterday in the emergency department was 228. I believe he is homeless. REVIEW OF SYSTEMS: Complete review of systems was obtained. Review of systems is negative for const itutional, HEENT, GI, pulmonary, cardiovascular, , Hematology, skin musculoskeletal, endocrine, and psychiatric, except for positives as in HPI. FAMILY HISTORY: Reviewed and noncontributory to presenting complaint. PHYSICAL EXAMINATION: GENERAL: Well-developed, well-nourished male, in no distress. VITAL SIGNS: Temperature 38.8, pulse 96, blood pressure 107/87, saturating 95% on 2 L. EYES: Normal conjunctivae . Pupils are reactive to light. ENT: Normal ears and nose. Hearing is intact. MOUTH: Normal celia th. OROPHARYNX: Dry. NECK: Trachea midline. No thyromegaly. CHEST: Normal effort. LUNGS: Jan ar to auscultation bilaterally. CARDIOVASCULAR: Regular rhythm. No murmur. No extremity edema. A BDOMEN: Soft, nontender. No hepatosplenomegaly. SKIN: Warm, dry, intact. No rash. MUSCULOSKELET AL: No cyanosis or clubbing. Strength is difficult to ascertain because he is lethargic and not fol lowing commands. No obvious defects noted. NEUROLOGIC: Cranial nerves: Unable to assess. Unable to assess sensation. PSYCHIATRIC: He is lethargic, but arousable. Not able to give any history. LABORATORY DATA: White count 7.26, hematocrit 41.0, platelets 109. Sodium 137, potassium 3.1, chlor jane 101, bicarbonate 23, BUN 13, creatinine 0.8, glucose 133. Ammonia is less than 9. AST 88. LFTs otherwise normal. Troponin 0.061. Lactate is 1.6. Toxicology screen is positive for benzodiazepine s and THC. Alcohol level is less than 10. Urinalysis is negative. Influenza is negative. RSV posi tive. Head CT is negative. CT angiogram of head and neck negative. EKG is viewed by me and my personal interpretation is normal sinus rhythm. No ST-T wave changes. Chest x-ray shows a left lower lobe infiltrate. ASSESSMENT/PLAN: 1. Pneumonia. He is also positive for respiratory syncytial virus. I suspect he may have secondary bacterial pneumonia on top of his respiratory syncytial virus. We will treat supportively, as well a s ceftriaxone and azithromycin for the bacterial infection. 2. Somnolence. Initially he came in as a stroke alert. No t-PA given, as he is nonfocal, and no de finite time of onset. My suspicion is that he has not had a stroke, and this is the metabolic enceph alopathy due to his pneumonia. Head CT and CT angiogram of the head and neck are negative. I will k eep him n.p.o. until his mental status improves. 3. Alcoholism. We will place him on a CIWA protocol. 4. Possible Wernicke's. [place] recommended high-dose thiamine. He has also on previous admission s thought to have an element of Wernicke's chronically. Intravenous thiamine is prescribed. 5. Tobacco dependence. We will offer a nicotine patch. 6. Troponin elevation. I believe this is strain in the setting of pneumonia. We will follow. 7. Code status is full. ADMISSION STATUS: We will admit to inpatient, as he is medically complex. Anticipate greater than 2 midnights. DVT PROPHYLAXIS: He is high risk. We will place him on subcutaneous Lovenox. /[id number]/MODL
[2017-09-14] MEDS ORDERED: PROTOCOL POTASSIUM 1 DOSE MISC PRN (20:46)
[2017-09-14] MEDS: AZITHROMYCIN IV 500 MG in NS 250 ML IV SCH (21:31)
[2017-09-14] MEDS: NICOTINE 21 MG/24 HR PATCH TD SCH (21:33)
[2017-09-14] MEDS ORDERED: THIAMINE HCL 500 MG in NS 500 ML IV SCH (22:00)
[2017-09-14] MEDS ORDERED: PROTOCOL MAGNESIUM 1 DOSE IV PRN (22:38)
[2017-09-14] MEDS ORDERED: MAGNESIUM SULF 1 GM/DEXTROSE 100 ML IV ONE (22:39)
[2017-09-14] MEDS: POTASSIUM Cl (KCl) 10 MEQ in NS 100 ML IV SCH (22:55)
[2017-09-15] MEDS: POTASSIUM Cl (KCl) 10 MEQ in NS 100 ML IV SCH ×6 (00:06→16:19)
[2017-09-15 06:18] LABS: PLATELET COUNT 93 10^3/uL (150-400)
[2017-09-15 06:22] LABS: INR 1.2 (0.83-1.16); PROTIME(PATIENT) 15.4 SEC (12.0-15.0)
--- NOTE | 2017-09-15 07:26 | PDCONSULT ---
Nurse Private Duty Note: [facility] Note Demographics Consult Type: Phone Only First Name: Jay BucknerClekelvin) Last Name: Patsy Date of : 1950 Age: 66 Referring Provider: Dr Lobo Time of initial page (Bisbee ): 09/14/2017 14:49 Time of return call (Bisbee Time): 09/14/2017 14:50 Time Ready to Initiate Telemed Consult (Bisbee Time): 09/14/2017 14:50 HPI Additional History (Free Text): 66 year old man with alcoholism sent to alcohol rehab yesterday from the emergency department. Sometime between 5 p.m. yesterday and this afternoon he is having trouble with words and talking. He hadn't been verbally interacting much with others and head and brought attention to himself so timing is uncertain. He does not have any demonstrable weakness by Dr Lobo's exam. Plan Imaging: CTA Head and Neck STAT, Please call me back with results [place] if there are signs of occlusion or dissection Additional Recommendations: IV thiamine 500 mg x 1 Logistics Provider Location: [place] Patient Location: [facility]
[2017-09-15] MEDS ORDERED: THIAMINE HCL 500 MG in NS 500 ML IV SCH (09:00)
[2017-09-15] MEDS: AZITHROMYCIN IV 500 MG in NS 250 ML IV SCH (09:01)
[2017-09-15] MEDS: NICOTINE 21 MG/24 HR PATCH TD SCH ×2 (09:01→09:04)
[2017-09-15] MEDS: ENOXAPARIN 40 MG/0.4 ML SYR SC SCH (09:01)
[2017-09-15] MEDS ORDERED: POTASSIUM Cl (KCl) 100 ML IV SCH (09:45)
--- NOTE | 2017-09-15 12:05 | PDMN ---
Medical Necessity Medical necessity: est los>2mn for PNA, RSV, somnolence, elevated troponin; admit to ICU/SDU, for IV abx, supportive care, CIWA; comorbid etoh abuse, possible Wernicke's, htn, erosive esophagitis, homelessness; per order and H&P
--- NOTE | 2017-09-15 14:36 | ASMTLACE ---
KIRSTIN Acuity / Level of Answers: Yes Care: Did the patient have an inpatient admission? Comorbidities - select Answers: Chronic pulmonary disease all that apply # of Emergency department Answers: 3-4 visits in the last 6 months Social determinants Answers: History of substance abuse (ETOH, street drugs, prescription drugs, etc.) Homelessness (street, custodial) Lack of community resources and/or lack of social support (no pcp, lives alone, transportation, ag d) Score: 18 Date Signed: 09/15/2017 02:36 PM Electronically Signed By:Suri Chatterjee LCSW
--- NOTE | 2017-09-15 14:41 | ASMTCMCOM ---
CM Note CM Note Notes: 66yr old male admitted fo PNA, RSV, ETOH abuse, Possible Wernicke's. He has a Hx of Homelessness, Cellulitis of R toe. Has not yet been evaluated by PT. Patient may need [facility] bed on discharge. to transfer to the floor. CM to follow. Date Signed: 09/15/2017 02:41 PM Electronically Signed By:Suri Chatterjee LCSW
--- NOTE | 2017-09-15 16:34 | HOSPPROG ---
Hospitalist Progress Note Assessment/Plan: # CAP - RSV positive on swab - CXR (personally reviewed and interpreted) left lower lobe infiltrate oxygen saturations 92% on RA - WBC 8.6 - consider procalcitonin to guide abx decision - follow cultures - cont antibiotics # acute encephalopathy - resolved overnight - stroke work up negative # Etoh abuse - risk of wd - cont CIWA #dispo - if remains stable can likely dc to alf tomorrow I have discussed the case with RN continue CIWA monitoring and supportive care Subjective: wiped out Objective: Vital Signs Temp Pulse Resp BP Pulse Ox 36.8 C 73 16 147/83 H 92 09/15/17 16:00 09/15/17 16:00 09/15/17 16:00 09/15/17 16:00 09/15/17 16:00 Laboratory Results 09/15/17 05:42 09/15/17 05:42 09/14/17 09/15/17 09/16/17 05:59 05:59 05:59 Intake Total 2922 1619 Output Total 400 625 Balance 2522 994 PT 15.4 SEC (12.0-15.0) H 09/15/17 05:42 INR 1.20 (0.83-1.16) H 09/15/17 05:42 - Physical Exam Constitutional: cachectic Eyes: anicteric sclera Ears, Nose, Mouth, Throat: poor dentition, dry mucous membranes Cardiovascular: regular rate and rhythym Respiratory: rhonchi Gastrointestinal: normoactive bowel sounds Genitourinary: no bladder fullness Skin: warm Musculoskeletal: No asymmetric calves Neurologic: AAOx3 Psychiatric: interacting appropriately Lymph, Heme, Immunologic: no cervical LAD ICD10 Worksheet Patient Problems: Problems Problem Status Onset Alcohol withdrawal Acute Altered mental status Acute Pneumonia Acute Alcohol intoxication Acute Anemia Acute Cellulitis of right toe Acute Erosive esophagitis Acute Hyponatremia Acute Johanne-Randle tear Acute Renal insufficiency Acute UGIB (upper gastrointestinal bleed) Acute Unintended weight loss Acute
[2017-09-16] MEDS: NICOTINE 21 MG/24 HR PATCH TD SCH (07:56)
[2017-09-16] MEDS: ENOXAPARIN 40 MG/0.4 ML SYR SC SCH (07:56)
[2017-09-16] MEDS ORDERED: THIAMINE HCL 100 MG TAB PO SCH (09:00)
[2017-09-16] MEDS ORDERED: POTASSIUM CL 10 MEQ TAB PO ONE (09:00)
[2017-09-16] MEDS: AZITHROMYCIN IV 500 MG in NS 250 ML IV SCH (09:58)
[2017-09-16 11:38] VITALS: BP 158/92; PULSE 78; RESP 16; TEMP 98.4; O2SAT 94
--- NOTE | 2017-09-16 12:24 | ASMTCMCOM ---
CM Note CM Note Notes: Pt to Dc today. [facility] bed at [facility] pt. Supplies pt with clean clothes. Noother DC needs identified. Date Signed: 09/16/2017 12:23 PM Electronically Signed By:Yessica Simpson LCSW
--- NOTE | 2017-09-16 22:07 | GDS ---
[f rep st] DISCHARGE SUMMARY Admit 09/14/2017 Discharge 09/16/2017 DISCHARGE DIAGNOSES: Include: 1. Community-acquired pneumonia. 2. Acute RSV infection. 3. Alcoholism. 4. Suspected Wernicke encephalopathy. 5. Hypertension. 6. History of erosive esophagitis. HISTORY OF PRESENT ILLNESS: A 66-year-old male, who presents with altered mental status. PROCEDURES: Include: 1. CTA of the head that showed no acute vascular abnormalities. 2. Noncontrast CT of the head that showed no acute findings. CONSULTATIONS: Include [facility]. HOSPITAL COURSE: By issue: 1. Encephalopathy metabolic- Patient was originally found with altered mental status, facts concerning for possible stroke, was admitted through the emergency department under stroke alert. Appropriate imaging and consultation with [facility] was initiated. Patient was not felt to have focal neurologic symptoms consistent with stroke, was cleared and sent to the medical floor for treatment of encephalopathy. Patient was found to have acute RSV infection, was provided supportive care, hydration, and initiation of antibiotics for what appeared to be lobar infiltrate on chest x-ray. On the day of disposition, he is mentating at his baseline without focal neurologic deficits. 2. Community-acquired pneumonia. Patient did have infiltrate on his chest x- ray, was found to have RSV on his sputum. Procalcitonin was 0.9. Patient was kept on treatment with IV antibiotics until day of disposition, transition to oral, which he will complete in the outpatient setting. MEDICATIONS AT THE TIME OF DISPOSITION: Please reference med rec printed on . FOLLOWUP APPOINTMENTS: Include [facility] as needed after completion of antibiotics for vital sign check and symptom followup. PENDING STUDIES: At the time of this dictation include blood cultures drawn upon admission, which are preliminary. No growth to date. I spent greater than 30 minutes in the planning and coordination of this discharge. /[id number]/MODL MTDD
[2017-09-18] MEDS ORDERED: THIAMINE HCL 100 MG TAB PO SCH (09:00)
== END 2017-09-16 15:16 | disposition home or self-care (01) | DRG 194 ==
LOC: EDUNIT# → INTOOBSV 17:30 → OBSVTOIN 17:42 → F2N 20:27 → F1N 09-15 14:46
PROVIDERS: ADMIT Internal Medicine; ATTEND Internal Medicine
DX: J12.1 Respiratory syncytial virus pneumonia (principal); E51.2 Wernicke's encephalopathy; F10.20 Alcohol dependence, uncomplicated; I10 Essential (primary) hypertension; F17.210 Nicotine dependence, cigarettes, uncomplicated; Z59.0 Homelessness
CPT/HCPCS: 80305; 96365; 97161-GP; 97165-GO; 97530-GO; G0480; G8987-GO-CK; G8988-GO-CI; J0456; J0696; J1650; J2060; J3411; J3475; J3480; Q9967

== ENCOUNTER 2017-09-28 20:04 | Emergency (ER) | payer MEDICAID ==
[2017-09-28 20:11] VITALS: BP 105/79; PULSE 76; RESP 16; TEMP 97.7; O2SAT 98
--- NOTE | 2017-09-28 20:17 | EDPHY ---
H & P Time Seen by Provider: 09/28/17 20:04 HPI/ROS: CHIEF COMPLAINT: Alcohol intoxication HISTORY OF PRESENT ILLNESS: 66-year-old homeless male presents to the emergency department by ambulance with acute alcohol intoxication. Patient admits to drinking a large amount of alcohol today. He states "I drink a lot of booze every day". No reports of trauma. He denies headache. Denies head injury. Denies chest pain or difficulty breathing. Denies neck pain. Denies any other illicit drug use. REVIEW OF SYSTEMS: Constitutional: No fever, no chills. Eyes: No double or blurry vision. ENT: No sore throat. Respiratory: No cough, no shortness of breath. Cardiac: No chest pain. Gastrointestinal: No abdominal pain, vomiting or diarrhea. Genitourinary: No dysuria. Musculoskeletal: No neck or back pain. Skin: No rashes. Neurological: No headache. Past Medical/Surgical History: Alcoholism, pneumonia, leg injury Social History: Homeless Smoking Status: Current every day smoker Physical Exam: General Appearance: Alert, no distress. Smells strongly of alcohol. No visible signs of trauma to his head. Eyes: Pupils equal and round. Extraocular motions are all intact. ENT: Mouth: Mucous membranes moist. No teeth. Respiratory: No wheezing, rhonchi, or rales, lungs are clear to auscultation. Cardiovascular: Regular rate and rhythm. Gastrointestinal: Abdomen is soft and nontender, no masses, no rebound or guarding, bowel sounds normal. Neurological: Alert and oriented x2, confused on date and time. Unable to test cranial nerves as he is uncooperative. Skin: Warm and dry, no rashes. Musculoskeletal: Nontender to palpate along the cervical, thoracic or lumbar spine. Neck is supple. Extremities: Full range of motion and no peripheral edema. Psychiatric: no agitation. Constitutional: Initial Vital Signs Temperature (C) 36.5 C 09/28/17 20:07 Heart Rate 76 09/28/17 20:07 Respiratory Rate 16 09/28/17 20:07 Blood Pressure 105/79 09/28/17 20:07 O2 Sat (%) 98 09/28/17 20:07 O2 Delivery Mode Room Air Allergies/Adverse Reactions: No Known Allergies Allergy (Verified 08/15/16 17:17) Home Medications: Medication Instructions Recorded NK [No Known Home Meds] 09/28/17 Medical Decision Making ED Course/Re-evaluation: The patient is on an arc hold. Patient will be kept on a monitor. When he is clinically sober and able to ambulate without assistance, he will be discharged to the addiction recovery Center. The patient was observed for nearly 2 hr in the emergency department. He had no complaints upon discharge. He was able to ambulate unassisted. Differential Diagnosis: Altered mental status including but not limited to hypoglycemia, infectious process, electrolyte abnormality, head injury and intoxicants. - Data Points Medications Given: Discontinued Medications Chlordiazepoxide (Librium 25 Mg Prepack#6) 1 btl TAKEHOME EDNOW ONE Stop: 09/28/17 21:38 Last Admin: 09/28/17 21:42 Dose: 1 btl Departure - Departure Disposition: Home, Routine, Self-Care Clinical Impression: Alcohol intoxication Qualifiers: Complication of substance-induced condition: uncomplicated Qualified Code(s): F10.920 - Alcohol use, unspecified with intoxication, uncomplicated Condition: Good Instructions: Chlordiazepoxide (By mouth), Alcohol Intoxication (ED) Additional Instructions: You should not drink alcohol in excess. Referrals: [facility] [Outside] - As per Instructions
[2017-09-28] MEDS ORDERED: CHLORDIAZEPOXIDE 25MG PREPK#6 BTL TAKEHOME ONE (21:37)
== END 2017-09-28 21:58 | disposition home or self-care (01) ==
LOC: EDUNIT#
DX: F10.920 Alcohol use, unspecified with intoxication, uncomplicated (principal); F17.200 Nicotine dependence, unspecified, uncomplicated

== ENCOUNTER 2017-10-04 20:28 | Emergency (ER) | payer MEDICAID ==
[2017-10-04 20:35] VITALS: RESP 16; TEMP 97.9
--- NOTE | 2017-10-04 20:43 | EDPHY ---
H & P Time Seen by Provider: 10/04/17 20:31 HPI/ROS: CHIEF COMPLAINT: Alcohol intoxication HISTORY OF PRESENT ILLNESS: Patient is a 66-year-old homeless male who presents emergency department via PD on our cold. Patient reports drinking alcohol this evening. They were unable to arouse him her have him ambulate. He is brought to the emergency department. Patient has no complaints at this time. He states he drank alcohol. He denies headache. He has no chest pain or abdominal pain. REVIEW OF SYSTEMS: My complete review of systems is negative except as mentioned in the HPI. Past Medical/Surgical History: Includes alcohol abuse, pneumonia, leg injury Social history: The patient is homeless. He smokes. Smoking Status: Current every day smoker Physical Exam: Vitals noted GENERAL: Intoxicated appearing. Somnolent.. HEENT: Eyes normal to inspection, normal pharynx, no signs of dehydration. The patient is protecting his airway. NECK: [No thyromegaly, no lymphadenopathy, supple. No spinal tenderness RESPIRATORY: Clear to auscultation bilaterally, no rales, rhonchi or wheezing. CVS: Regular rate and rhythm, no rubs, murmurs, or gallops. ABDOMEN: Soft, nontender, nondistended, no organomegaly. BACK: Normal to inspection, no CVA tenderness. SKIN: Normal color, no rash, warm, dry. No pallor. EXTREMITIES: No pedal edema, no calf tenderness, no Homans sign or cords, no joint swelling. NEURO/PSYCH: Intoxicated appearing, moves all extremities appropriately. Constitutional: Initial Vital Signs Temperature (C) 36.6 C 10/04/17 20:34 Heart Rate 74 10/04/17 20:34 Respiratory Rate 16 10/04/17 20:34 Blood Pressure 137/91 H 10/04/17 20:34 O2 Sat (%) 94 10/04/17 20:34 O2 Delivery Mode Room Air Allergies/Adverse Reactions: No Known Allergies Allergy (Verified 08/15/16 17:17) Home Medications: Medication Instructions Recorded NK [No Known Home Meds] 09/28/17 Medical Decision Making ED Course/Re-evaluation: In the emergency department I took report from the community relations police lieutenant. I discussed the plan with the patient. Patient will be observed in the emergency department. I do not feel he needs imaging or laboratory studies at this time. I reviewed his medical record. He has been in the emergency department numerous times for alcohol abuse. There is no visible signs of trauma on his exam. 2300: Patient is signed out to Dr. Dietz at change of shift. Patient is on a [facility] hold. Differential Diagnosis: My differential includes but is not limited to alcohol abuse, drug abuse, closed -head injury, bacteremia, sepsis, pneumonia, hypothermia Departure - Departure Disposition: Home, Routine, Self-Care Clinical Impression: Alcohol intoxication Alcohol dependence Qualifiers: Substance use status: with intoxication Complication of substance-induced condition: uncomplicated Qualified Code(s): F10.220 - Alcohol dependence with intoxication, uncomplicated Condition: Good Instructions: Abuse of Alcohol (ED) Referrals: [facility],. [Clinic] - 2-3 days without fail
[2017-10-04 23:39] VITALS: BP 132/86; PULSE 75; O2SAT 95
[2017-10-04] MEDS ORDERED: CHLORDIAZEPOXIDE 25MG PREPK#6 BTL TAKEHOME ONE (23:39)
== END 2017-10-04 23:37 | disposition home or self-care (01) ==
LOC: EDUNIT#
DX: F10.220 Alcohol dependence with intoxication, uncomplicated (principal); F17.200 Nicotine dependence, unspecified, uncomplicated

== ENCOUNTER 2017-10-20 17:00 | Emergency (ER) | payer MEDICAID ==
--- NOTE | 2017-10-20 17:07 | EDPHY ---
H & P Smoking Status: Current every day smoker Time Seen by Provider: 10/20/17 17:07 HPI/ROS: CHIEF COMPLAINT: "Too drunk for detox" HISTORY OF PRESENT ILLNESS: Arrives by EMS after 1 of his buddies called because he had been drinking and could not stand. They were called to the [facility] near [facility]. Patient does not have any medical complaints on arrival. REVIEW OF SYSTEMS: Further review systems and HPI unobtainable because the patient's intoxication. PAST MEDICAL HISTORY: Alcoholism and Wernickes Social history: Recent alcohol General Appearance: Sleepy, opens eyes spontaneously. Eyes: No scleral icterus. ENT, Mouth: Normal mucous membranes. No tongue laceration or abrasion. Respiratory: Normal respiratory effort, breath sounds equal, lungs are clear to auscultation. Cardiovascular: Regular rate and rhythm. Gastrointestinal: Abdomen is soft and non tender. Neurological: Sleepy but opens eyes spontaneously and responds appropriately to commands. Moves all 4 extremities. Skin: Warm and dry, no rashes. No laceration. Musculoskeletal: No extremity deformity or tenderness. No head trauma. Psychiatric: Not agitated. Emergency Department course/MDM: Glucose 85. Plan for serial examination. Patient's presentation consistent with self-described alcohol ingestion. 2340: tried to walk, still unsteady on feet, no medical complaints. Signed out to Ora at midnight plan for serial exam, to detox when able. Admits to drinking lots of whisky today. (Bi Celis) 5:10 a.m.- Patient now more awake and alert, he is able to walk with a steady gait, he will be discharged to the [facility]. (Abbey Payan) Constitutional: Initial Vital Signs Temperature (C) 36 C 10/20/17 17:00 Heart Rate 78 10/20/17 17:00 Respiratory Rate 16 10/20/17 17:00 Blood Pressure 116/74 10/20/17 17:00 O2 Sat (%) 93 10/20/17 17:00 O2 Delivery Mode Room Air O2 (L/minute) 2 Allergies/Adverse Reactions: No Known Allergies Allergy (Verified 08/15/16 17:17) Home Medications: Medication Instructions Recorded NK [No Known Home Meds] 09/28/17 - Data Points Laboratory Results: 10/20/17 18:15 POC Glucose 85 mg/dL mg/dL (70-100) Point of Care Test Results: 10/20/17 18:15 POC Glucose 85 Departure - Departure Disposition: Home, Routine, Self-Care Clinical Impression: Alcohol intoxication Qualifiers: Complication of substance-induced condition: uncomplicated Qualified Code(s): F10.920 - Alcohol use, unspecified with intoxication, uncomplicated Condition: Good Instructions: Alcohol Intoxication (ED) Referrals: [facility],. [Clinic] - As per Instructions
[2017-10-21 02:15] VITALS: RESP 18; TEMP 97.7
[2017-10-21 05:05] VITALS: O2SAT 95
[2017-10-21] MEDS ORDERED: CHLORDIAZEPOXIDE 25MG PREPK#6 BTL TAKEHOME ONE (05:09)
[2017-10-21 05:23] VITALS: BP 104/80; PULSE 78
== END 2017-10-21 05:22 | disposition home or self-care (01) ==
LOC: EDUNIT#
DX: F10.920 Alcohol use, unspecified with intoxication, uncomplicated (principal); F17.200 Nicotine dependence, unspecified, uncomplicated